=== PATIENT | male | born 1950 | race Caucasian/White ===

== ENCOUNTER 2022-02-16 10:45 | Day surgery (SDC) | payer OTHER ==
[~2022-02-16] VITALS: Ht 175.3 cm; Wt 79.8 kg
[2022-02-16] MEDS ORDERED: fentaNYL citrate 0.05 MG/ML VIAL ONE (12:12)
[2022-02-16] MEDS ORDERED: LIDOCAINE 2% 100 MG/5 ML UJET TP ONE (12:13)
[2022-02-16] MEDS ORDERED: fentaNYL citrate 0.05 MG/ML VIAL IVP ONE (13:20)
== END 2022-02-16 13:14 | disposition home or self-care (01) ==
LOC: MDS 10:45 → MMU 10:47 → MDS 13:14
PROVIDERS: ATTEND Internal Medicine Gastroenterology
DX: Z12.11 Encounter for screening for malignant neoplasm of colon (principal); K64.9 Unspecified hemorrhoids; E78.5 Hyperlipidemia, unspecified; G47.30 Sleep apnea, unspecified; Z99.89 Dependence on other enabling machines and devices; Z98.890 Other specified postprocedural states; Z88.0 Allergy status to penicillin; Z79.82 Long term (current) use of aspirin; Z79.899 Other long term (current) drug therapy; Z20.822 Contact with and (suspected) exposure to COVID-19
CPT/HCPCS: 45378; 87426; J3010